=== PATIENT | male | born 1990 | race Two or more races ===

== ENCOUNTER 2023-09-12 09:44 | Emergency (ER) | payer SELFPAY ==
[~2023-09-12] VITALS: Ht 170.2 cm; Wt 93.0 kg
[2023-09-12 15:48] VITALS: BP 145/77; PULSE 96; RESP 18; O2SAT 99
== END 2023-09-12 15:55 | disposition home or self-care (01) ==
LOC: ER 09:44
DX: S82.142A Displaced bicondylar fracture of left tibia, initial encounter for closed fracture (principal); W22.8XXA Striking against or struck by other objects, initial encounter; Y93.89 Activity, other specified; Y92.89 Other specified places as the place of occurrence of the external cause; Y99.8 Other external cause status
CPT/HCPCS: 29505; 73700